=== PATIENT | male | born 1970 | race Caucasian/White ===

== ENCOUNTER 2021-04-16 13:31 | Emergency (ER) | payer OTHER ==
[~2021-04-16] VITALS: Ht 182.9 cm; Wt 118.2 kg
[~2021-04-16 13:31] MED LIST: CLIN-97 PO; CLIN150C2 PO; HYDR1TAB PO; NORCO10T PO
[2021-04-16 13:46] VITALS: BP 147/94
== END 2021-04-16 15:08 | disposition home or self-care (01) ==
LOC: ER 13:32
DX: M25.512 Pain in left shoulder (principal); Z88.0 Allergy status to penicillin; Z79.2 Long term (current) use of antibiotics; Z79.899 Other long term (current) drug therapy
CPT/HCPCS: 73030; 99283

== ENCOUNTER 2023-03-27 14:41 | Emergency (ER) | payer SELFPAY ==
[~2023-03-27] VITALS: Ht 182.9 cm; Wt 45.4 kg
[2023-03-27 14:50] VITALS: BP 144/102; PULSE 73; RESP 18; TEMP 97.3; O2SAT 98
[2023-03-27] MEDS ORDERED: PRED20TA PO (16:04)
[2023-03-27] MEDS ORDERED: VALA100031 PO (16:04)
== END 2023-03-27 16:30 | disposition home or self-care (01) ==
LOC: ER 14:42
DX: G51.0 Bell's palsy (principal); Z88.0 Allergy status to penicillin
CPT/HCPCS: 99283